=== PATIENT | female | born 1980 | race Caucasian/White ===

== ENCOUNTER 2017-01-22 20:22 | Emergency (ER) | payer MEDICAID ==
--- NOTE | 2017-01-22 20:58 | ER Document Report ---
ED Medical Screen (RME) - General Stated Complaint: RIGHT ANKLE PAIN Notes: 36 yo female c/o pain, swelling and numbness to right lower leg just superior to lateral malleolus. acute onset 1700 today while laying in bed. mild soft tissue swelling noted. no erythema or echymosis. distal SMC intact works as [employer]. no recent travel, trauma, surgery. TRAVEL OUTSIDE OF THE [place] IN LAST 30 DAYS: No - Related Data Allergies/Adverse Reactions: No Known Allergies Allergy (Verified 04/03/16 13:21) Past Medical History Neurological Medical History: Reports: Hx Migraine Renal/ Medical History: Reports: Hx Ectopic - x2 Musculoskeltal Medical History: Reports Hx Arthritis, Reports Hx Musculoskeletal Trauma Skin Medical History: Reports Hx Cellulitis, Reports Hx Psoriasis Psychiatric Medical History: Reports: Hx Obsessive Compulsive Disorder Traumatic Medical History: Reports: Hx Fractures - clavicle Past Surgical History: Reports: Hx Section - x4, Hx Genitourinary Surgery - bladder placenta from bladder, Hx Gynecologic Surgery - ectopic, Hx Hysterectomy - partial, Hx Oral Surgery - Immunizations Immunizations up to date: No Hx Diphtheria, Pertussis, Tetanus Vaccination: No Physical Exam - Vital signs Vitals: Temp Pulse Resp BP Pulse Ox 98.8 F 72 16 127/68 H 99 01/22/17 20:35 01/22/17 20:35 01/22/17 20:35 01/22/17 20:35 01/22/17 20:35 Course - Vital Signs Vital signs: Temp Pulse Resp BP Pulse Ox 98.8 F 72 16 127/68 H 99 01/22/17 20:35 01/22/17 20:35 01/22/17 20:35 01/22/17 20:35 01/22/17 20:35
--- NOTE | 2017-01-23 00:51 | ER Document Report ---
ED Extremity Problem, Lower - General Mode of Arrival: Ambulatory Information source: Patient - HPI Patient complains to provider of: Pain Location: Ankle Associated symptoms: Other - See above <WANG CRUZ - Last Filed: 01/23/17 00:54> - General TRAVEL OUTSIDE OF THE [place] IN LAST 30 DAYS: No <JOHANN WALDRON - Last Filed: 01/23/17 03:13> - General Chief Complaint: Ankle Pain Stated Complaint: RIGHT ANKLE PAIN Notes: Patient is a 36 year old female who presents to the emergency department complaining of pain in her right ankle. Patient states that she was sitting down when all of a sudden she noticed some pain, swelling, and bruising in her right ankle. Patient also complains of numbness and tingling in her lower right extremity. Patient does not recall any trauma to the area and states that the ankle is feeling slightly better now after rubbing it for a while. (WANG CRUZ) - Related Data Allergies/Adverse Reactions: No Known Allergies Allergy (Verified 04/03/16 13:21) Past Medical History - General Information source: Patient - Social History Smoking Status: Unknown if Ever Smoked Family History: Reviewed & Not Pertinent <WANG CRUZ - Last Filed: 01/23/17 00:54> - Social History Smoking Status: Unknown if Ever Smoked Family History: Arthritis, CAD, CVA, Hyperlipidemia, Hypertension. denies: DM, Malignancy, Thyroid Disfunction Patient has suicidal ideation: No Patient has homicidal ideation: No Neurological Medical History: Reports: Hx Migraine Renal/ Medical History: Reports: Hx Ectopic - x2. Denies: Hx Peritoneal Dialysis Musculoskeltal Medical History: Reports Hx Arthritis, Reports Hx Musculoskeletal Trauma Skin Medical History: Reports Hx Cellulitis, Reports Hx Psoriasis Psychiatric Medical History: Reports: Hx Obsessive Compulsive Disorder Traumatic Medical History: Reports: Hx Fractures - clavicle Past Surgical History: Reports: Hx Section - x4, Hx Genitourinary Surgery - bladder placenta from bladder, Hx Gynecologic Surgery - ectopic, Hx Hysterectomy, Hx Oral Surgery - Immunizations Immunizations up to date: No Hx Diphtheria, Pertussis, Tetanus Vaccination: No <JOHANN WALDRON - Last Filed: 01/23/17 03:13> Review of Systems - Review of Systems Constitutional: No symptoms reported EENT: No symptoms reported Cardiovascular: No symptoms reported Respiratory: No symptoms reported Gastrointestinal: No symptoms reported Genitourinary: No symptoms reported Female Genitourinary: No symptoms reported Musculoskeletal: See HPI, Joint pain - right ankle, Ankle swelling Skin: No symptoms reported Hematologic/Lymphatic: No symptoms reported Neurological/Psychological: See HPI, Numbness, Tingling -: Yes All other systems reviewed and negative <WANG CRUZ - Last Filed: 01/23/17 00:54> Physical Exam - Vital signs Interpretation: Normal - General General appearance: Appears well, Alert - HEENT Head: Normocephalic, Atraumatic Eyes: Normal Pupils: PERRL - Respiratory Respiratory status: No respiratory distress Chest status: Nontender Breath sounds: Normal Chest palpation: Normal - Cardiovascular Rhythm: Regular Heart sounds: Normal auscultation Murmur: No - Abdominal Inspection: Normal Distension: No distension Bowel sounds: Normal Tenderness: Nontender Organomegaly: No organomegaly - Back Back: Normal, Nontender - Extremities General upper extremity: Normal inspection, Nontender, Normal color, Normal ROM , Normal temperature General lower extremity: Normal inspection, Tender - Mild TTP R calf, anterior medial R ankle excellent dorsalis pedis/post tibia pulse, Normal color, Normal ROM, Normal temperature, Normal weight bearing - Neurological Neuro grossly intact: Yes Cognition: Normal Orientation: AAOx4 Jonatan Coma Scale Eye Opening: Spontaneous [place] Coma Scale Verbal: Oriented [place] Coma Scale Motor: Obeys Commands [place] Coma Scale Total: 15 Speech: Normal Motor strength normal: LUE, RUE, LLE, RLE Sensory: Normal - Psychological Associated symptoms: Normal affect, Normal mood - Skin Skin Temperature: Warm Skin Moisture: Dry Skin Color: Normal <JOHANN WALDRON - Last Filed: 01/23/17 03:13> - Vital signs Vitals: Temp Pulse Resp BP Pulse Ox 98.8 F 72 16 127/68 H 99 01/22/17 20:35 01/22/17 20:35 01/22/17 20:35 01/22/17 20:35 01/22/17 20:35 Course <WANG CRUZ - Last Filed: 01/23/17 00:54> - Diagnostic Test Radiology reviewed: Reports reviewed <JOHANN WALDRON - Last Filed: 01/23/17 03:13> - Re-evaluation Re-evalutation: 01/23/17 Patient with no acute findings on exam. Excellent blood flow. Patient will be given a prescription for Doppler outpatient. She is able to ambulate. Stable for discharge. (JOHANN WALDRON) - Vital Signs Vital signs: Temp Pulse Resp BP Pulse Ox 97.9 F 60 20 117/70 98 01/23/17 01:00 01/23/17 01:00 01/23/17 01:00 01/23/17 01:00 01/23/17 01:00 Discharge <WANG CRUZ - Last Filed: 01/23/17 00:54> <JOHANN WALDRON - Last Filed: 01/23/17 03:13> - Discharge Clinical Impression: Paresthesias Condition: Stable Disposition: HOME, SELF-CARE Instructions: Numbness or Paresthesia ([facility]), Possible Evolving Leg DVT ([facility]) Additional Instructions: Please follow-up with your PMD this week. Forms: Follow-Up Radiology Testing, Follow-Up Outpatient Testing Scribe Attestation: 01/23/17 03:13 I personally performed the services described in the documentation, reviewed and edited the documentation which was dictated to the scribe in my presence, and it accurately records my words and actions. (JOHANN WALDRON) Scribe Documentation - Scribe Written by Stacie:: stacie Jimenez, 01/23/17, 0058 acting as scribe for :: Nereyda <WANG CRUZ - Last Filed: 01/23/17 00:54>
[2017-01-23 01:01] VITALS: BP 117/70
== END 2017-01-23 01:01 | disposition home or self-care (01) ==
LOC: ER 20:22
DX: R20.2 Paresthesia of skin (principal); R20.0 Anesthesia of skin; M25.571 Pain in right ankle and joints of right foot; M25.471 Effusion, right ankle
CPT/HCPCS: 99283

== ENCOUNTER → 2017-01-23 | Outpatient (CLI) | payer MEDICAID | LOC: SP 13:23 | PROVIDERS: ATTEND Emergency Medicine | DX: M79.604 Pain in right leg (principal); R20.9 Unspecified disturbances of skin sensation | CPT/HCPCS: 93971 ==

== ENCOUNTER 2017-07-16 16:53 | Emergency (ER) | payer MEDICAID ==
--- NOTE | 2017-07-16 17:48 | ER Document Report ---
ED Headache - General Chief Complaint: Headache Stated Complaint: NECK PAIN Time Seen by Provider: 07/16/17 17:40 Notes: 36 yo female c/o DOMINGUEZ x 1 day. pt reports pain started at back of head and base of neck and traveled up top of head. pain comes in "bursts". + hx/o migraines , "but this is worse". vomited x 1, no fever, no neck stiffness. TRAVEL OUTSIDE OF THE [place] IN LAST 30 DAYS: No - HPI Patient complains to provider of: Headache Patient reports: Frequent migraines Onset was: Gradual Timing: Still present Quality of pain: Sharp, Stabbing, Throbbing Pain Level: 5 Preceding symptoms: denies: Typical of prior aura(s) - worse than usual headache , Visual disturbance - Related Data Allergies/Adverse Reactions: No Known Allergies Allergy (Verified 07/16/17 16:59) Past Medical History - General Information source: Patient - Social History Smoking Status: Current Every Day Smoker Frequency of alcohol use: None Drug Abuse: None Family History: Arthritis, CAD, CVA, Hyperlipidemia, Hypertension. denies: DM, Malignancy, Thyroid Disfunction Neurological Medical History: Reports: Hx Migraine Renal/ Medical History: Reports: Hx Ectopic - x2. Denies: Hx Peritoneal Dialysis Musculoskeltal Medical History: Reports Hx Arthritis, Reports Hx Musculoskeletal Trauma Skin Medical History: Reports Hx Cellulitis, Reports Hx Psoriasis Psychiatric Medical History: Reports: Hx Obsessive Compulsive Disorder Traumatic Medical History: Reports: Hx Fractures - clavicle Past Surgical History: Reports: Hx Section - x4, Hx Genitourinary Surgery - bladder placenta from bladder, Hx Gynecologic Surgery - ectopic, Hx Hysterectomy, Hx Oral Surgery - Immunizations Immunizations up to date: No Hx Diphtheria, Pertussis, Tetanus Vaccination: No Review of Systems - Review of Systems Constitutional: No symptoms reported EENT: No symptoms reported Cardiovascular: No symptoms reported Respiratory: No symptoms reported Gastrointestinal: No symptoms reported Genitourinary: No symptoms reported Female Genitourinary: No symptoms reported Musculoskeletal: No symptoms reported Skin: No symptoms reported Hematologic/Lymphatic: No symptoms reported Neurological/Psychological: See HPI Physical Exam - Vital signs Vitals: Temp Pulse Resp BP Pulse Ox 97.8 F 68 20 141/89 H 99 07/16/17 16:58 07/16/17 16:58 07/16/17 16:58 07/16/17 16:58 07/16/17 16:58 Interpretation: Normal - General General appearance: Alert, Anxious - uncomfortable, in position on bed In distress: Mild - HEENT Head: Normocephalic, Atraumatic Eyes: Normal Conjunctiva: Normal Cornea: Normal Extraocular movements intact: Yes Pupils: PERRL Tympanic membrane: Normal Mucous membranes: Normal, Moist Neck: Normal, Supple. No: Lymphadenopathy - Respiratory Respiratory status: No respiratory distress Chest status: Nontender Breath sounds: Normal Chest palpation: Normal - Cardiovascular Rhythm: Regular Heart sounds: Normal auscultation Murmur: No - Abdominal Inspection: Normal Distension: No distension Bowel sounds: Normal Tenderness: Nontender Organomegaly: No organomegaly - Back Back: Normal, Nontender - Extremities General upper extremity: Normal inspection, Nontender, Normal color, Normal ROM , Normal temperature General lower extremity: Normal inspection, Nontender, Normal color, Normal ROM , Normal temperature, Normal weight bearing. No: Cholo's sign - Neurological Neuro grossly intact: Yes Cognition: Normal Orientation: AAOx4 Jonatan Coma Scale Eye Opening: Spontaneous [place] Coma Scale Verbal: Oriented [place] Coma Scale Motor: Obeys Commands [place] Coma Scale Total: 15 Speech: Normal Motor strength normal: LUE, RUE, LLE, RLE Sensory: Normal - Psychological Associated symptoms: Normal affect, Normal mood - Skin Skin Temperature: Warm Skin Moisture: Dry Skin Color: Normal Course - Re-evaluation Re-evalutation: 07/16/17 17:55 pt uncomfortable but neurologically intact. no meningeal s/s. will CT head since pt admitted this is worse headache ever and not typical for her. medicated for pain 07/16/17 19:[address] normal. results reviewed with patient. pt improved after meds. neurologically intact. stable for discharge and follow up with primary care. - Vital Signs Vital signs: Temp Pulse Resp BP Pulse Ox 97.8 F 68 20 141/89 H 99 07/16/17 16:58 07/16/17 16:58 07/16/17 16:58 07/16/17 16:58 07/16/17 16:58 Discharge - Discharge Clinical Impression: Headache Qualifiers: Headache type: unspecified Headache chronicity pattern: acute headache Intractability: not intractable Qualified Code(s): R51 - Headache Condition: Stable Disposition: HOME, SELF-CARE Instructions: Antinausea Medication ([facility]), Use of Diphenhydramine, Headache ( [facility]), Toradol Injection ([facility]), Reglan ([facility]) Additional Instructions: Your head CT is negative today if your headache returns, take 2 Benadryl + 1 Phenergan and lay down in cool, dark room to rest follow up with your primary care if headaches persist Prescriptions: Promethazine HCl [Phenergan 25 mg Tablet] 25 mg PO Q6H PRN #15 tablet PRN Reason: Forms: Return to Work
[2017-07-16] MEDS ORDERED: DIPHENHYDRAMINE HCL 50 MG/ML VIAL IV ONE (17:49)
[2017-07-16] MEDS ORDERED: KETOROLAC TROMETHAMINE INJ/PF 30 MG/1 ML SDV IV ONE (17:49)
[2017-07-16] MEDS ORDERED: METOCLOPRAMIDE HCL INJ/PF 10 MG/2 ML SDV IV ONE (17:49)
--- NOTE | 2017-07-16 18:38 | RADIOLOGY REPORT (SQ) ---
EXAM DESCRIPTION: CT HEAD WITHOUT COMPLETED DATE/TIME: 07/16/2017 6:30 pm REASON FOR STUDY: worst DOMINGUEZ ever COMPARISON: None. TECHNIQUE: Axial images acquired through the brain without intravenous contrast. Images reviewed wi th bone, brain and subdural windows. Images stored on PACS. All CT scanners at this facility use dose modulation, iterative reconstruction, and/or weight based d osing when appropriate to reduce radiation dose to as low as reasonably achievable (ALARA). [facility]: Dose Right [facility]: CareDose [facility]: Dose Right [facility]: Teradose 4D [facility]: Estrada Beisbol RADIATION DOSE: mGy. LIMITATIONS: None. FINDINGS: VENTRICLES: Normal size and contour. CEREBRUM: No masses. No hemorrhage. No midline shift. No evidence for acute infarction. Normal gra y/white matter differentiation. No areas of low density in the white matter. CEREBELLUM: No masses. No hemorrhage. No alteration of density. No evidence for acute infarction. EXTRAAXIAL SPACES: No fluid collections. No masses. ORBITS AND GLOBE: No intra- or extraconal masses. Normal contour of globe without masses. CALVARIUM: No fracture. PARANASAL SINUSES: No fluid or mucosal thickening. SOFT TISSUES: No mass or hematoma. OTHER: No other significant finding. IMPRESSION: NORMAL BRAIN CT WITHOUT CONTRAST. COMMENT: Quality ID # [id number]: Final reports with documentation of one or more dose reduction techniques (e.g., Automated exposure control, adjustment of the mA and/or kV according to patient size, use of iterative reconstruction technique) TECHNICAL DOCUMENTATION: JOB ID: [id number] [employer]- All Rights Reserved
[2017-07-16 19:49] VITALS: BP 117/62
== END 2017-07-16 19:49 | disposition home or self-care (01) ==
LOC: ER 16:53
DX: R51 Headache (principal); M54.2 Cervicalgia; R11.10 Vomiting, unspecified; F17.200 Nicotine dependence, unspecified, uncomplicated
CPT/HCPCS: 99284; 96374; 96375; 70450; J1200; J1885; J2765

== ENCOUNTER 2018-01-01 10:50 | Emergency (ER) | payer MEDICAID ==
--- NOTE | 2018-01-01 11:28 | ER Document Report ---
ED General - General Chief Complaint: Flu Symptoms Stated Complaint: FLU SYMPTOMS Time Seen by Provider: 01/01/18 11:25 Mode of Arrival: Ambulatory Information source: Patient Notes: 37-year-old female presents with a multitude of complaints, patient notes initially she started having a cough congestion light green sputum, patient notes she has fevers, patient notes from all her coughing she is now having upper abdominal pain and neck pain and hurts on palpation. Patient admits to mild headache. Patient also notes today she was having dark and foul-smelling urine as well as ear pain TRAVEL OUTSIDE OF THE [place] IN LAST 30 DAYS: No - HPI Onset: Last week Onset/Duration: Persistent Quality of pain: Achy Severity: Mild Pain Level: 1 Associated symptoms: Body/muscle aches, Earache, Fever, Shortness of breath, Other Exacerbated by: Movement Relieved by: Denies Similar symptoms previously: No Recently seen / treated by doctor: No - Related Data Allergies/Adverse Reactions: No Known Allergies Allergy (Verified 01/01/18 10:53) Past Medical History - Social History Smoking Status: Current Every Day Smoker Cigarette use (# per day): Yes Chew tobacco use (# tins/day): No Smoking Education Provided: Yes - Patient counselled regarding cessation for 4 minutes Frequency of alcohol use: Rare Drug Abuse: None Family History: Arthritis, CAD, CVA, Hyperlipidemia, Hypertension. denies: DM, Malignancy, Thyroid Disfunction Patient has suicidal ideation: No Patient has homicidal ideation: No Neurological Medical History: Reports: Hx Migraine Renal/ Medical History: Reports: Hx Ectopic - x2. Denies: Hx Peritoneal Dialysis Musculoskeltal Medical History: Reports Hx Arthritis, Reports Hx Musculoskeletal Trauma Skin Medical History: Reports Hx Cellulitis, Reports Hx Psoriasis Psychiatric Medical History: Reports: Hx Obsessive Compulsive Disorder Traumatic Medical History: Reports: Hx Fractures - clavicle Past Surgical History: Reports: Hx Section - x4, Hx Genitourinary Surgery - bladder placenta from bladder, Hx Gynecologic Surgery - ectopic, Hx Hysterectomy, Hx Oral Surgery - Immunizations Immunizations up to date: No Hx Diphtheria, Pertussis, Tetanus Vaccination: No Review of Systems - Review of Systems Notes: REVIEW OF SYSTEMS: CONSTITUTIONAL : Fevers chills EENT: Neck pain, ear ache CARDIOVASCULAR: Denies chest pain. Denies palpitations or racing or irregular heart beat. Denies ankle edema. RESPIRATORY: admits to ocugh GASTROINTESTINAL: Denies abdominal pain or distention. Denies nausea, vomiting , or diarrhea. Denies blood in vomitus, stools, or per rectum. Denies black, tarry stools. Denies constipation. GENITOURINARY: Denies difficulty urinating, painful urination, burning, frequency, blood in urine, or discharge. FEMALE GENITOURINARY: Denies vaginal bleeding, heavy or abnormal periods, irregular periods. Denies vaginal discharge or odor. MUSCULOSKELETAL: neck pain SKIN: Denies rash, lesions or sores. HEMATOLOGIC : Denies easy bruising or bleeding. LYMPHATIC: Denies swollen, enlarged glands. NEUROLOGICAL: Denies confusion or altered mental status. Denies passing out or loss of consciousness. Denies dizziness or lightheadedness. Denies headache. Denies weakness or paralysis or loss of use of either side. Denies problems with gait or speech. Denies sensory loss, numbness, or tingling. Denies seizures. PSYCHIATRIC: Denies anxiety or stress. Denies depression, suicidal ideation, or homicidal ideation. ALL OTHER SYSTEMS REVIEWED AND NEGATIVE. PHYSICAL EXAMINATION: GENERAL: Well-appearing, well-nourished and in no acute distress. HEAD: Atraumatic, normocephalic. EYES: Pupils equal round and reactive to light, extraocular movements intact, conjunctiva are normal. ENT: Nares patent, oropharynx clear without exudates. Moist mucous membranes. NECK: Normal range of motion, supple without lymphadenopathy, no meningeal sign LUNGS: Breath sounds clear to auscultation bilaterally and equal. No wheezes rales or rhonchi. ACough noted HEART: Regular rate and rhythm without murmurs ABDOMEN: Soft, nontender, nondistended abdomen. No guarding, no rebound. No masses appreciated. Female : deferred Musculoskeletal: Normal range of motion, no pitting or edema. No cyanosis. NEUROLOGICAL: Cranial nerves grossly intact. Normal speech, normal gait. Normal sensory, motor exams PSYCH: Normal mood, normal affect. SKIN: Warm, Dry, normal turgor, no rashes or lesions noted. Dictation was performed using [employer] voice recognition software Physical Exam - Vital signs Vitals: Temp Pulse Resp BP Pulse Ox 98.0 F 50 L 18 136/75 H 98 01/01/18 10:56 01/01/18 10:56 01/01/18 10:56 01/01/18 10:56 01/01/18 10:56 Course - Re-evaluation Re-evalutation: 01/01/18 11:28 Patient has probable bowel syndrome, given history of smoking x-ray has been ordered, influenza pending, urinalysis pending for UTI 01/01/18 13:05 UTI does note 3+ bacteria, chest x-ray noted no acute abnormality I will start the patient doxycycline given that she is a smoker with productive cough, smoking cessation instructions have been provided, she has no signs of meningitis, After performing a Medical Screening Examination, I estimate there is LOW risk for ACUTE CORONARY SYNDROME, PULMONARY EMBOLI, RESPIRATORY FAILURE, SEPSIS OR MENINGITIS, thus I consider the discharge disposition reasonable. I have reevaluated this patient multiple times and no significant life threatening changes are noted. The patient and I have discussed the diagnosis and risks, and we agree with discharging home with close follow-up. We also discussed returning to the Emergency Department immediately if new or worsening symptoms occur. We have discussed the symptoms which are most concerning (e.g., changing or worsening pain, trouble swallowing or breathing, neck stiffness, fever) that necessitate immediate return. - Vital Signs Vital signs: Temp Pulse Resp BP Pulse Ox 97.9 F 62 16 123/82 99 01/01/18 13:02 01/01/18 13:02 01/01/18 13:02 01/01/18 13:02 01/01/18 13:02 - Laboratory Laboratory results interpreted by me: 01/01/18 11:50 Urine Ascorbic Acid 40 H - Diagnostic Test Radiology reviewed: Image reviewed, Reports reviewed Discharge - Discharge Clinical Impression: Productive cough, Body aches UTI (urinary tract infection) Qualifiers: Urinary tract infection type: acute cystitis Hematuria presence: without hematuria Qualified Code(s): N30.00 - Acute cystitis without hematuria Condition: Stable Disposition: HOME, SELF-CARE Instructions: Urinary Tract Infection ([facility]) Additional Instructions: Follow up with your physician tomorrow for further care or return to the ED IMMEDIATELY if symptoms worsen or new concerns occur. If you cannot afford to follow up with your primary care physician a list of low cost clinics have been provided at the end of your discharge papers as well. Prescriptions: Doxycycline Hyclate 100 mg PO BID #14 capsule
[2018-01-01 12:24] LABS: APPEARANCE,URINE CLEAR; BILIRUBIN,URINE NEGATIVE (NEGATIVE); COLOR,URINE YELLOW; GLUCOSE, URINE NEGATIVE (NEGATIVE); KETONES,URINE NEGATIVE (NEGATIVE); LEUKOCYTE ESTERASE,URINE NEGATIVE (NEGATIVE); NITRITE,URINE NEGATIVE (NEGATIVE); PROTEIN,URINE NEGATIVE (NEGATIVE); URINE SPECIFIC GRAVITY 1.008; UROBILINOGEN,URINE NEGATIVE mg/dL (<2.0)
[2018-01-01 12:26] LABS: A TYPE INFLUENZA AG NEGATIVE (NEGATIVE); B INFLUENZA AG NEGATIVE (NEGATIVE)
--- NOTE | 2018-01-01 12:37 | RADIOLOGY REPORT (SQ) ---
EXAM DESCRIPTION: CHEST PA/LAT COMPLETED DATE/TIME: 01/01/2018 12:09 pm REASON FOR STUDY: productive cough COMPARISON: None. EXAM PARAMETERS: NUMBER OF VIEWS: two views TECHNIQUE: Digital Frontal and Lateral radiographic views of the chest acquired. RADIATION DOSE: NA LIMITATIONS: none FINDINGS: LUNGS AND PLEURA: No opacities, masses or pneumothorax. No pleural effusion. MEDIASTINUM AND HILAR STRUCTURES: No masses or contour abnormalities. HEART AND VASCULAR STRUCTURES: Heart normal size. No evidence for failure. BONES: Old fracture deformity right clavicle. HARDWARE: None in the chest. OTHER: No other significant finding. IMPRESSION: NO SIGNIFICANT RADIOGRAPHIC FINDING IN THE CHEST. TECHNICAL DOCUMENTATION: JOB ID: [id number] [employer]- All Rights Reserved Reading location - IP/workstation name: [email or web address]
[2018-01-01 13:03] VITALS: BP 123/82
[2018-01-01] MEDS ORDERED: KETOROLAC TROMETHAMINE 60 MG/2 ML SDV IM ONE (13:03)
== END 2018-01-01 13:03 | disposition home or self-care (01) ==
LOC: ER 10:50
DX: R05 Cough (principal); N30.00 Acute cystitis without hematuria; R50.9 Fever, unspecified; R10.10 Upper abdominal pain, unspecified; M54.2 Cervicalgia; R51 Headache; H92.09 Otalgia, unspecified ear; R06.02 Shortness of breath; F17.210 Nicotine dependence, cigarettes, uncomplicated; Z71.6 Tobacco abuse counseling
CPT/HCPCS: 99406; 99283; 96372; 81025; 81001; 87804; 71046; J1885

== ENCOUNTER 2018-06-16 01:32 | Emergency (ER) | payer MEDICAID ==
[2018-06-16 01:39] VITALS: BP 115/67
[2018-06-16] MEDS ORDERED: PROMETHAZINE HCL 25 MG TABLET PO ONE (02:58)
[2018-06-16] MEDS ORDERED: OXYCODONE-ACETAMINOPHEN 5-325 MG TABLET PO ONE (02:58)
--- NOTE | 2018-06-16 03:00 | ER Document Report ---
ED GI/ - General TRAVEL OUTSIDE OF THE [place] IN LAST 30 DAYS: No <EARLINE REYNOLDS - Last Filed: 06/16/18 07:08> - General Mode of Arrival: Ambulatory Information source: Patient <EDUIN GARCIA - Last Filed: 06/16/18 12:48> - General Chief Complaint: Lower Abdominal Pain Stated Complaint: LOWER ABDOMINAL PAIN Time Seen by Provider: 06/16/18 02:45 Notes: Patient is a 37-year-old female who comes emergency department for chief complaint of sudden onset right pelvic pain with nausea, symptoms started about 30 minutes prior to arrival. She denies vaginal bleeding or discharge, dysuria , fever chills, injury, flank pain. She has had a partial hysterectomy, bladder surgery, and she does have a history of ovarian cysts. (EARLINE REYNOLDS) - Related Data Allergies/Adverse Reactions: No Known Allergies Allergy (Verified 01/01/18 10:53) Past Medical History - General Information source: Patient - Social History Smoking Status: Current Every Day Smoker Frequency of alcohol use: None Drug Abuse: None Lives with: Family Family History: Arthritis, CAD, CVA, Hyperlipidemia, Hypertension. denies: DM, Malignancy, Thyroid Disfunction Patient has suicidal ideation: No Patient has homicidal ideation: No Neurological Medical History: Reports: Hx Migraine Renal/ Medical History: Reports: Hx Ectopic - x2. Denies: Hx Peritoneal Dialysis Musculoskeletal Medical History: Reports Hx Arthritis, Reports Hx Musculoskeletal Trauma Skin Medical History: Reports Hx Cellulitis, Reports Hx Psoriasis Psychiatric Medical History: Reports: Hx Obsessive Compulsive Disorder Traumatic Medical History: Reports: Hx Fractures - clavicle Past Surgical History: Reports: Hx Section - x4, Hx Genitourinary Surgery - bladder placenta from bladder, Hx Gynecologic Surgery - ectopic, Hx Hysterectomy, Hx Oral Surgery - Immunizations Immunizations up to date: No Hx Diphtheria, Pertussis, Tetanus Vaccination: No <EARLINE REYNOLDS - Last Filed: 06/16/18 07:08> Review of Systems - Review of Systems Constitutional: No symptoms reported EENT: No symptoms reported Cardiovascular: No symptoms reported Respiratory: No symptoms reported Gastrointestinal: See HPI Genitourinary: See HPI Female Genitourinary: See HPI Musculoskeletal: No symptoms reported Skin: No symptoms reported Hematologic/Lymphatic: No symptoms reported Neurological/Psychological: No symptoms reported <EARLINE REYNOLDS - Last Filed: 06/16/18 07:08> Physical Exam <EARLINE REYNOLDS - Last Filed: 06/16/18 07:08> <EDUIN GARCIA - Last Filed: 06/16/18 12:48> - Vital signs Vitals: Temp Pulse Resp BP Pulse Ox 98.0 F 82 16 115/67 97 06/16/18 01:37 06/16/18 01:37 06/16/18 01:37 06/16/18 01:37 06/16/18 01:37 - Notes Notes: GENERAL: Alert, interacts well. Patient appears mildly uncomfortable. HEAD: Normocephalic, atraumatic. EYES: Pupils equal, round, and reactive to light. Extraocular movements intact. ENT: Oral mucosa moist, tongue midline. [Nares patent, no nasal septal hematoma , TM's intact.] NECK: Full range of motion. Supple. Trachea midline. LUNGS: Clear to auscultation bilaterally, no wheezes, rales, or rhonchi. No respiratory distress. HEART: Regular rate and rhythm. No murmur ABDOMEN: Tenderness in the right pelvic area with wincing. No overt McBurney's point tenderness. No distention. Remaining abdomen is soft and benign. EXTREMITIES: Moves all 4 extremities spontaneously. No edema, normal radial and dorsalis pedis pulses bilaterally. No cyanosis. BACK: no cervical, thoracic, lumbar midline tenderness. No saddle anesthesia, normal distal neurovascular exam. NEUROLOGICAL: Alert and oriented x3. Normal speech. [cranial nerves II through XII grossly intact]. PSYCH: Normal affect, normal mood. SKIN: Warm, dry, normal turgor. No rashes or lesions noted. (EARLINE REYNOLDS) Course - Laboratory Result Diagrams: 06/16/18 03:05 06/16/18 03:05 <EARLINE REYNOLDS - Last Filed: 06/16/18 07:08> - Laboratory Result Diagrams: 06/16/18 03:05 06/16/18 03:05 <EDUIN GARCIA - Last Filed: 06/16/18 12:48> - Re-evaluation Re-evalutation: Patient does have right sided pelvic tenderness, not overtly over McBurney's point, remaining abdomen is completely benign. She appears mildly uncomfortable. After medications patient's symptoms significantly improved, she states she is much more comfortable. Vital signs unremarkable. No fever. Presentation of sudden onset pain with nausea and right pelvic tenderness are most suggestive of right ovarian torsion. CBC, chemistry unremarkable. Urinalysis unremarkable. Ultrasound showing very superficial possible ovary with blood flow in the right pelvic area, recommended CAT scan to further evaluate and differentiate. I discussed this with patient, she is very agreeable with this plan, she denies additional medication at this point. 06/16/18 07:08 Patient introduced to Eduin BORDEN at bedside. Patient drinking contrast, no current complaints, pending CAT scan. (EARLINE REYNOLDS) Disposition given to AMBER Broussard at bedside 0715. Patient sleeping, vitals stable and in no distress. Awaiting results of CT scan. 06/16/18 10:27 06/16/18 12:43 CT of abdomen pelvis with IV contrast does not show any abscess or hematoma. CT abdomen pelvis is able to visualize appendix which looks normal. Pelvis has no significant masses, normal bladder, no free fluid. No obstruction, no masses seen in bowel or peritoneal cavity, no free fluid no inflammation or thickening of bowel wall. No retroperitoneal adenopathy hemorrhage or masses. No renal stones, no hydronephrosis, no dissection or aneurysm renal arteries are without stenosis. Vaginal culture showed the patient does have bacterial vaginosis will treat appropriately. Consulted with Dr. Bertha Nascimento, [employer] on -call at 1230 regarding pertinent laboratory diagnostic and clinical findings. She states that patient is okay to go home and follow-up with medical doctor as well as her in the next 3 days. 06/16/18 12:48 (EDUIN GARCIA) - Vital Signs Vital signs: Temp Pulse Resp BP Pulse Ox 98.0 F 82 16 115/67 97 06/16/18 01:37 06/16/18 01:37 06/16/18 01:37 06/16/18 01:37 06/16/18 01:37 - Laboratory Laboratory results interpreted by me: 06/16/18 06/16/18 02:32 03:05 Chloride 110 H AST 12 L Urine Ketones TRACE H Urine Urobilinogen 2.0 H Discharge <EARLINE REYNOLDS - Last Filed: 06/16/18 07:08> <EDUIN GARCIA - Last Filed: 06/16/18 12:48> - Discharge Clinical Impression: Bacterial vaginosis, right pelvic pain Condition: Stable Disposition: HOME, SELF-CARE Instructions: Vaginosis, Bacterial ([facility]), Pelvic Pain ([facility]), Abdominal Pain ( [facility]) Additional Instructions: Work was normal. CT abdomen pelvis with IV contrast was normal. Liver not having any ovarian torsion, there is no cyst seen on the right ovary. 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 If you experience any worsening pain, fever, nausea vomiting, diarrhea, vaginal bleeding, etc. return to the ED immediately. Return immediately for any new or worsening symptoms. Follow up with primary care provider, call tomorrow to make followup appointment. Prescriptions: Metronidazole 500 mg PO BID #14 tablet Forms: Return to Work Referrals: BERTHA NASCIMENTO MD [ACTIVE STAFF] - Follow up in 3-5 days ROLA SOTOMAYOR DO [Primary Care Provider] - Follow up in 3-5 days
[2018-06-16 03:38] LABS: ABSOLUTE BASOPHILS # (AUTO) 0.1 10^3/uL (0.0-0.2); ABSOLUTE EOSINOPHILS # (AUTO) 0.1 10^3/uL (0.0-0.6); ABSOLUTE LYMPHOCYTES (AUTO) 2.6 10^3/uL (0.5-4.7); ABSOLUTE MONOCYTES (AUTO) 0.7 10^3/uL (0.1-1.4); ABSOLUTE NEUT (AUTO) 5.7 10^3/uL (1.7-8.2); BASOPHILS % (AUTO) 0.7 % (0-2); EOSINOPHILS % (AUTO) 0.6 % (0-6); HEMATOCRIT 40.4 % (36.0-47.0); HEMOGLOBIN 13.9 g/dL (12.0-15.5); LYMPHOCYTES % (AUTO) 28.3 % (13-45); MEAN CORPUSCULAR HEMOGLOBIN 30.3 pg (27.0-33.4); MEAN CORPUSCULAR HGB CONC 34.5 g/dL (32.0-36.0); MEAN CORPUSCULAR VOLUME 88 fl (80-97); MONOCYTES % (AUTO) 7.8 % (3-13); PLATELET COUNT 191 10^3/uL (150-450); RED CELL DISTRIBUTION WIDTH 13.7 % (11.5-14.0); SEGMENTED NEUTROPHILS % (AUTO) 62.6 % (42-78); TOTAL CELLS COUNTED % (AUTO) 100 %; WHITE BLOOD COUNT 9.1 10^3/uL (4.0-10.5)
[2018-06-16 03:55] LABS: ALANINE AMINOTRANSFERASE 19 U/L (9-52); ALKALINE PHOSPHATASE 54 U/L (38-126); ANION GAP 12 (5-19); ASPARTATE AMINO TRANSFERASE 12 U/L (14-36); BILIRUBIN,DIRECT 0.2 mg/dL (0.0-0.4); BILIRUBIN,TOTAL 0.2 mg/dL (0.2-1.3); BLOOD UREA NITROGEN 11 mg/dL (7-20); CALCIUM 9.6 mg/dL (8.4-10.2); CARBON DIOXIDE 23 mmol/L (22-30); CHLORIDE 110 mmol/L (98-107); GLUCOSE 103 mg/dL (75-110); POTASSIUM 3.8 mmol/L (3.6-5.0); SODIUM 144.6 mmol/L (137-145); TOTAL PROTEIN 6.5 g/dL (6.3-8.2)
[2018-06-16 03:55] LABS: APPEARANCE,URINE CLEAR; BILIRUBIN,URINE NEGATIVE (NEGATIVE); COLOR,URINE YELLOW; GLUCOSE, URINE NEGATIVE (NEGATIVE); KETONES,URINE TRACE mg/dL (NEGATIVE); LEUKOCYTE ESTERASE,URINE NEGATIVE (NEGATIVE); NITRITE,URINE NEGATIVE (NEGATIVE); PROTEIN,URINE NEGATIVE (NEGATIVE); URINE SPECIFIC GRAVITY 1.016
--- NOTE | 2018-06-16 04:50 | RADIOLOGY REPORT (SQ) ---
Ultrasound pelvis on 06/16/2018 at 3:47 AM Clinical indications: Acute onset right lower quadrant pain COMPARISON: None FINDINGS: Multiple sonographic images are obtained throughout the pelvis by transabdominal and transvaginal approach, both transverse and sagittal images are obtained. The patient is status post hysterectomy. No free fluid is noted in the pelvis. Left ovary is not visualized. There is hypoechoic area in the right lower quadrant. This has increased through transmission with internal echoes. There is flow extending through this area. This may represent the right ovary. Cannot exclude abscess or hematoma. Follow-up CT of the abdomen and pelvis with contrast would be useful to better evaluate the right pelvis in this patient. There is no enlarged ovary to suggest definite ovarian torsion. IMPRESSION: Very superficial hypoechoic abnormality in the right lower quadrant. This is not definitively the patient's ovary although this may represent the ovary. Cannot exclude abscess or hematoma. Would recommend follow-up CT of the abdomen and pelvis with contrast to better evaluate the right lower quadrant.
--- NOTE | 2018-06-16 08:24 | RADIOLOGY REPORT (SQ) ---
EXAM DESCRIPTION: CT ABD/PELVIS WITH IV ORAL COMPLETED DATE/TIME: 06/16/2018 7:59 am REASON FOR STUDY: RLQ pain COMPARISON: None. TECHNIQUE: CT scan of the abdomen and pelvis performed with intravenous and oral contrast using leelee gerald scanning technique with dynamic intravenous contrast injection. Images reviewed with lung, soft t issue, and bone windows. Reconstructed coronal and sagittal MPR images reviewed. Delayed images for e valuation of the urinary system also acquired. All images stored on PACS. All CT scanners at this facility use dose modulation, iterative reconstruction, and/or weight based d osing when appropriate to reduce radiation dose to as low as reasonably achievable (ALARA). [facility]: Dose Right [facility]: CareDose [facility]: Dose Right [facility]: Teradose 4D [facility]: GB Environmental CONTRAST TYPE AND DOSE: contrast/concentration: Isovue 350.00 mg/ml; Total Contrast Delivered: 58.0 ml; Total Saline Delivered: 65.0 ml RENAL FUNCTION: GFR > 60. RADIATION DOSE: CT Rad equipment meets quality standard of care and radiation dose reduction techniq ues were employed. CTDIvol: 4.8 - 5.0 mGy. DLP: 527 mGy-cm.. LIMITATIONS: None. FINDINGS: LOWER CHEST: No significant findings. No nodules or infiltrates. LIVER: Normal size. No masses. No dilated ducts. SPLEEN: Normal size. No focal lesions. PANCREAS: No masses. No significant calcifications. No adjacent inflammation or peripancreatic fluid collections. Pancreatic duct not dilated. GALLBLADDER: No identified stones by CT criteria. No inflammatory changes to suggest cholecystitis. ADRENAL GLANDS: No significant masses or asymmetry. RIGHT KIDNEY AND URETER: No solid masses. No significant calcification. No hydronephrosis or hydroure ter. LEFT KIDNEY AND URETER: No solid masses. No significant calcification. No hydronephrosis or hydrouret er. AORTA AND VESSELS: No aneurysm. No dissection. Renal arteries, SMA, celiac without stenosis. RETROPERITONEUM: No retroperitoneal adenopathy, hemorrhage or masses. BOWEL AND PERITONEAL CAVITY: No obstruction. No visualized masses. No free fluid. No inflammatory ch anges or thickening of bowel wall. APPENDIX: Normal. PELVIS: No significant masses. Normal bladder. No free fluid. ABDOMINAL WALL: No masses. No hernias. BONES: No significant or acute findings. OTHER: No other significant finding. IMPRESSION: NO SIGNIFICANT OR ACUTE FINDINGS IN THE ABDOMEN OR PELVIS. TECHNICAL DOCUMENTATION: JOB ID: [id number] Quality ID # [id number]: Final reports with documentation of one or more dose reduction techniques (e.g., Au tomated exposure control, adjustment of the mA and/or kV according to patient size, use of iterative reconstruction technique) 2010 [employer]- All Rights Reserved Reading location - IP/workstation name: [email or web address] [id number]
[2018-06-16 11:45] LABS: T.VAGINALIS (WET MOUNT) NO TRICHOMONAS SEEN; YEAST (WET MOUNT) NO YEAST SEEN
[2018-06-16 11:46] LABS: BACTERIA (WET MOUNT) 3+ BACTERIA SEEN; EPITHELIALS (WET MOUNT) 4+ EPITHELIALS SEEN; WBCS (WET MOUNT) RARE WBCS SEEN
[2018-06-16 13:34] LABS: CHLAM PCR NOT DETECTED (NOT DETECT); GON PCR NOT DETECTED (NOT DETECT)
== END 2018-06-16 13:13 | disposition home or self-care (01) ==
LOC: ER 01:32
DX: N76.0 Acute vaginitis (principal); B96.89 Other specified bacterial agents as the cause of diseases classified elsewhere; R10.2 Pelvic and perineal pain; R11.0 Nausea; F17.200 Nicotine dependence, unspecified, uncomplicated; Z90.711 Acquired absence of uterus with remaining cervical stump; Z87.42 Personal history of other diseases of the female genital tract; Z87.59 Personal history of other complications of pregnancy, childbirth and the puerperium
CPT/HCPCS: 99284; 36415; 87210; 84703; 85025; 80053; 81001; 87491; 87591; 76830; 93976; 74177; J3490

== ENCOUNTER 2018-11-22 18:49 | Emergency (ER) | payer MEDICAID ==
[2018-11-22] MEDS ORDERED: HYDROCODONE/ACETAMINOPHEN 5-325 MG TABLET PO ONE (19:13)
--- NOTE | 2018-11-22 19:13 | ER Document Report ---
ED Medical Screen (RME) - General Chief Complaint: Abdominal Pain Stated Complaint: ABDOMINAL PAIN, BACK PAIN Time Seen by Provider: 11/22/18 19:11 Mode of Arrival: Ambulatory Information source: Patient TRAVEL OUTSIDE OF THE [place] IN LAST 30 DAYS: No - HPI Patient complains to provider of: R flank pain Onset: Yesterday - pt with onset of R flank and LBP starting yesterday with radiation to R groin area today - Related Data Allergies/Adverse Reactions: No Known Allergies Allergy (Verified 01/01/18 10:53) Past Medical History Neurological Medical History: Reports: Hx Migraine Renal/ Medical History: Reports: Hx Ectopic - x2. Denies: Hx Peritoneal Dialysis Musculoskeltal Medical History: Reports Hx Arthritis, Reports Hx Musculoskeletal Trauma Skin Medical History: Reports Hx Cellulitis, Reports Hx Psoriasis Psychiatric Medical History: Reports: Hx Obsessive Compulsive Disorder Traumatic Medical History: Reports: Hx Fractures - clavicle Past Surgical History: Reports: Hx Section - x4, Hx Genitourinary Surgery - bladder placenta from bladder, Hx Gynecologic Surgery - ectopic, Hx Hysterectomy, Hx Oral Surgery - Immunizations Immunizations up to date: No Hx Diphtheria, Pertussis, Tetanus Vaccination: No Doctor's Discharge - Discharge Referrals: ROLA SOTOMAYOR DO [Primary Care Provider] - Follow up as needed
[2018-11-22 19:37] LABS: ABSOLUTE BASOPHILS # (AUTO) 0.1 10^3/uL (0.0-0.2); ABSOLUTE EOSINOPHILS # (AUTO) 0.1 10^3/uL (0.0-0.6); ABSOLUTE LYMPHOCYTES (AUTO) 2.1 10^3/uL (0.5-4.7); ABSOLUTE MONOCYTES (AUTO) 0.6 10^3/uL (0.1-1.4); ABSOLUTE NEUT (AUTO) 5.3 10^3/uL (1.7-8.2); BASOPHILS % (AUTO) 0.7 % (0-2); EOSINOPHILS % (AUTO) 0.9 % (0-6); HEMATOCRIT 41.4 % (36.0-47.0); LYMPHOCYTES % (AUTO) 25.2 % (13-45); MEAN CORPUSCULAR HEMOGLOBIN 29.8 pg (27.0-33.4); MEAN CORPUSCULAR HGB CONC 33.8 g/dL (32.0-36.0); MEAN CORPUSCULAR VOLUME 88 fl (80-97); MONOCYTES % (AUTO) 7.9 % (3-13); PLATELET COUNT 208 10^3/uL (150-450); RED BLOOD COUNT 4.68 10^6/uL (3.72-5.28); RED CELL DISTRIBUTION WIDTH 13.8 % (11.5-14.0); SEGMENTED NEUTROPHILS % (AUTO) 65.3 % (42-78); TOTAL CELLS COUNTED % (AUTO) 100 %; WHITE BLOOD COUNT 8.2 10^3/uL (4.0-10.5)
[2018-11-22 19:41] LABS: AMORPHOUS SEDIMENT,URINE TRACE /HPF; APPEARANCE,URINE CLOUDY; BILIRUBIN,URINE NEGATIVE (NEGATIVE); COLOR,URINE YELLOW; GLUCOSE, URINE NEGATIVE (NEGATIVE); KETONES,URINE NEGATIVE (NEGATIVE); LEUKOCYTE ESTERASE,URINE NEGATIVE (NEGATIVE); NITRITE,URINE NEGATIVE (NEGATIVE); PROTEIN,URINE NEGATIVE (NEGATIVE); URINE SPECIFIC GRAVITY 1.015; UROBILINOGEN,URINE NEGATIVE mg/dL (<2.0)
--- NOTE | 2018-11-22 19:48 | RADIOLOGY REPORT (SQ) ---
EXAM DESCRIPTION: CT LTD RENAL STONE PROTOCOL ON COMPLETED DATE/TIME: 11/22/2018 7:34 pm REASON FOR STUDY: R flank pain COMPARISON: None. TECHNIQUE: CT scan of the abdomen and pelvis performed without intravenous or oral contrast. Images reviewed with lung, soft tissue, and bone windows. Reconstructed coronal and sagittal MPR images revi ewed. All images stored on PACS. All CT scanners at this facility use dose modulation, iterative reconstruction, and/or weight based d osing when appropriate to reduce radiation dose to as low as reasonably achievable (ALARA). [facility]: Dose Right [facility]: CareDose [facility]: Dose Right [facility]: Teradose 4D [facility]: Smart Ozmosis RADIATION DOSE: CT Rad equipment meets quality standard of care and radiation dose reduction techniq ues were employed. CTDIvol: 4.8 mGy. DLP: 236 mGy-cm.mGy. LIMITATIONS: None. FINDINGS: LOWER CHEST: No significant findings. No nodules or infiltrates. NON-CONTRASTED LIVER, SPLEEN, ADRENALS: Evaluation limited by lack of IV contrast. No identified sign ificant masses. PANCREAS: No masses. No peripancreatic inflammatory changes. GALLBLADDER: No calcified stones. No inflammatory changes to suggest cholecystitis. RIGHT KIDNEY AND URETER: No cysts identified. No solid masses. No calcified stones. No hydronephrosis or hydroureter. LEFT KIDNEY AND URETER: No cysts identified. No solid masses. No calcified stones. No hydronephrosis or hydroureter. AORTA AND RETROPERITONEUM: No aneurysm. No retroperitoneal masses or adenopathy. BOWEL AND PERITONEAL CAVITY: No obvious masses or inflammatory changes. No free fluid. APPENDIX: Normal. PELVIS, BLADDER, AND ABDOMINAL WALL:No abnormal masses. No free fluid. Unremarkable bladder. BONES: No acute findings. OTHER: No other significant finding. IMPRESSION: NO ACUTE FINDINGS. TECHNICAL DOCUMENTATION: JOB ID: [id number] [place]-72 Quality ID # [id number]: Final reports with documentation of one or more dose reduction techniques (e.g., Au tomated exposure control, adjustment of the mA and/or kV according to patient size, use of iterative reconstruction technique) 2010 [employer]- All Rights Reserved Reading location - IP/workstation name: [email or web address]
[2018-11-22 19:55] LABS: ALANINE AMINOTRANSFERASE 33 U/L (9-52); ALBUMIN 4.6 g/dL (3.5-5.0); ALKALINE PHOSPHATASE 60 U/L (38-126); ANION GAP 5 (5-19); ASPARTATE AMINO TRANSFERASE 16 U/L (14-36); BILIRUBIN,TOTAL 0.2 mg/dL (0.2-1.3); BLOOD UREA NITROGEN 14 mg/dL (7-20); CALCIUM 9.6 mg/dL (8.4-10.2); CARBON DIOXIDE 29 mmol/L (22-30); CHLORIDE 107 mmol/L (98-107); GLUCOSE 82 mg/dL (75-110); POTASSIUM 4.3 mmol/L (3.6-5.0); SODIUM 141.1 mmol/L (137-145)
--- NOTE | 2018-11-22 20:44 | ER Document Report ---
ED General - General Chief Complaint: Abdominal Pain Stated Complaint: ABDOMINAL PAIN, BACK PAIN Time Seen by Provider: 11/22/18 19:11 Mode of Arrival: Ambulatory Notes: Well-appearing 37-year-old female presents to the emergency department for right lower quadrant abdominal pain. She says the pain started last night and it started out as back pain. She went to [facility] today was walking around and then had severe pain that caused her to double over and stop in her tracks. She has history of ovarian cyst feels this is different type of pain. She denies fevers, chills, shortness of breath, chest pain did complain of nausea, denies vomiting, diarrhea, denies urinary symptoms, denies abnormal vaginal discharge. TRAVEL OUTSIDE OF THE [place] IN LAST 30 DAYS: No - Related Data Allergies/Adverse Reactions: No Known Allergies Allergy (Verified 01/01/18 10:53) Past Medical History - General Information source: Patient - Social History Smoking Status: Current Every Day Smoker Frequency of alcohol use: None Family History: Arthritis, CAD, CVA, Hyperlipidemia, Hypertension. denies: DM, Malignancy, Thyroid Disfunction Patient has suicidal ideation: No Patient has homicidal ideation: No Neurological Medical History: Reports: Hx Migraine Renal/ Medical History: Reports: Hx Ectopic - x2. Denies: Hx Peritoneal Dialysis Musculoskeletal Medical History: Reports Hx Arthritis, Reports Hx Musculoskeletal Trauma Skin Medical History: Reports Hx Cellulitis, Reports Hx Psoriasis Psychiatric Medical History: Reports: Hx Obsessive Compulsive Disorder Traumatic Medical History: Reports: Hx Fractures - clavicle Past Surgical History: Reports: Hx Section - x4, Hx Genitourinary Surgery - bladder placenta from bladder, Hx Gynecologic Surgery - ectopic, Hx Hysterectomy, Hx Oral Surgery - Immunizations Immunizations up to date: No Hx Diphtheria, Pertussis, Tetanus Vaccination: No Review of Systems - Review of Systems Constitutional: See HPI EENT: No symptoms reported Cardiovascular: See HPI Respiratory: See HPI Gastrointestinal: See HPI Genitourinary: See HPI Female Genitourinary: See HPI Musculoskeletal: No symptoms reported Skin: No symptoms reported Hematologic/Lymphatic: No symptoms reported Neurological/Psychological: No symptoms reported Physical Exam - Notes Notes: PHYSICAL EXAMINATION: Reviewed vital signs and charting by RN GENERAL: Well-appearing, well-nourished and in no acute distress. HEAD: Atraumatic, normocephalic. EYES: Pupils equal round, extraocular movements intact, sclera anicteric, conjunctiva are normal. ENT: nares patent Moist mucous membranes. NECK: Normal range of motion LUNGS: Breath sounds clear to auscultation bilaterally and equal. No wheezes rales or rhonchi. HEART: Regular rate and rhythm without murmurs ABDOMEN: Soft, nontender, normoactive bowel sounds. No guarding, no rebound. Small superficial mass approximately 2 cm in size felt left lower quadrant EXTREMITIES: Normal range of motion, no pitting or edema. No cyanosis. NEUROLOGICAL: Face symmetric. PSYCH: Normal mood, normal affect. SKIN: Warm, Dry, normal turgor, no rashes or lesions noted. Course - Re-evaluation Re-evalutation: 11/22/18 20:44 Very well-appearing 37-year-old female presents for left lower quadrant abdominal pain. She was seen here a year ago and diagnosed with ovarian cysts. She states the pain is different this time. Lab work was all normal, urinalysis negative for UTI, CT abdomen without contrast unremarkable. After palpating her left lower quadrant I was able to feel a small superficial mass that could be consistent with a ovarian cyst as an ultrasound at her last visit stated that she was having superficial cysts. I reassured patient that there is no emergent condition and she is stable for discharge. - Laboratory Result Diagrams: 11/22/18 19:26 11/22/18 19:26 Discharge - Discharge Clinical Impression: Lower abdominal pain Condition: Good Disposition: HOME, SELF-CARE Instructions: Abdominal Pain ([facility]) Additional Instructions: You are seen in the emergency department this afternoon for lower abdominal pain. Your workup was overall negative which is very reassuring. Your CT showed no concerning emergency conditions. Your urine showed no evidence of urinary tract infection. It could very well be that this was another ovarian cyst as I was able to feel something in the area where you are having pain. Come back to the emergency department if you develop high fever, pass out, or have any other concerning symptoms. Referrals: ROLA SOTOMAYOR, [NO LOCAL MD] - Follow up as needed
== END 2018-11-22 20:45 | disposition home or self-care (01) ==
LOC: ER 18:49
DX: R10.31 Right lower quadrant pain (principal); R19.04 Left lower quadrant abdominal swelling, mass and lump; F17.200 Nicotine dependence, unspecified, uncomplicated; Z87.42 Personal history of other diseases of the female genital tract; Z87.59 Personal history of other complications of pregnancy, childbirth and the puerperium; Z90.710 Acquired absence of both cervix and uterus
CPT/HCPCS: 36415; 76380; 80053; 81001; 85025; 99284

== ENCOUNTER 2018-12-14 21:36 | Emergency (ER) | payer MEDICAID ==
[2018-12-15 00:52] LABS: APPEARANCE,URINE CLOUDY; BILIRUBIN,URINE NEGATIVE (NEGATIVE); COLOR,URINE YELLOW; GLUCOSE, URINE NEGATIVE (NEGATIVE); KETONES,URINE NEGATIVE (NEGATIVE); LEUKOCYTE ESTERASE,URINE LARGE (NEGATIVE); NITRITE,URINE POSITIVE (NEGATIVE); PROTEIN,URINE 100 mg/dL (NEGATIVE); URINE SPECIFIC GRAVITY 1.025
[2018-12-15] MEDS ORDERED: SULFAMETHOXAZOLE/TRIMETHOPRIM 800-160 MG TABLET PO ONE (01:22)
[2018-12-15 01:32] VITALS: BP 112/69
[2018-12-15] MEDS ORDERED: PHENAZOPYRIDINE HCL 200 MG TABLET PO ONE (01:48)
--- NOTE | 2018-12-15 02:03 | ER Document Report ---
ED General - General Chief Complaint: Abdominal Pain Stated Complaint: BACK PAIN/VAGINA PAIN Time Seen by Provider: 12/15/18 00:21 Mode of Arrival: Ambulatory TRAVEL OUTSIDE OF THE [place] IN LAST 30 DAYS: No - HPI Notes: Presents emerged from in for evaluation. She states she has had urinary urgency and dysuria. She had already seen her primary care physician about it and has b een referred on to urology. She states that over the last several days she has had worsening urgency. She has pain in her lower back. She has a pressure sensation before and after urination denies any ivan hematuria. No fevers, she has had some very mild nausea. - Related Data Allergies/Adverse Reactions: No Known Allergies Allergy (Verified 01/01/18 10:53) Past Medical History - General Information source: Patient - Social History Smoking Status: Current Every Day Smoker Chew tobacco use (# tins/day): No Frequency of alcohol use: None Drug Abuse: None Family History: Arthritis, CAD, CVA, Hyperlipidemia, Hypertension. denies: DM, Malignancy, Thyroid Disfunction Patient has suicidal ideation: No Patient has homicidal ideation: No Neurological Medical History: Reports: Hx Migraine Renal/ Medical History: Reports: Hx Ectopic - x2. Denies: Hx Peritoneal Dialysis Musculoskeletal Medical History: Reports Hx Arthritis, Reports Hx Musculoskeletal Trauma Skin Medical History: Reports Hx Cellulitis, Reports Hx Psoriasis Psychiatric Medical History: Reports: Hx Obsessive Compulsive Disorder Traumatic Medical History: Reports: Hx Fractures - clavicle Past Surgical History: Reports: Hx Section - x4, Hx Genitourinary Surgery - bladder placenta from bladder, Hx Gynecologic Surgery - ectopic, Hx Hysterectomy, Hx Oral Surgery - Immunizations Immunizations up to date: No Hx Diphtheria, Pertussis, Tetanus Vaccination: No Review of Systems - Review of Systems Constitutional: No symptoms reported EENT: No symptoms reported Cardiovascular: No symptoms reported Respiratory: No symptoms reported Gastrointestinal: Nausea Genitourinary: See HPI, Dysuria Musculoskeletal: No symptoms reported Skin: No symptoms reported Neurological/Psychological: No symptoms reported Physical Exam - Vital signs Vitals: Temp Pulse Resp BP Pulse Ox 97.6 F 70 16 104/57 L 100 12/14/18 22:16 12/14/18 22:16 12/14/18 22:16 12/14/18 22:16 12/14/18 22:16 Interpretation: Normal - Notes Notes: Vital signs reviewed, please refer to chart. Patient is normocephalic, atraumatic. Pupils equal round, reactive to light. Neck is supple without meningismus. Heart is regular rate and rhythm. Lungs are clear to auscultation bilaterally. Abdomen is soft, nontender, normoactive bowel sounds throughout. No costovertebral angle tenderness. Extremities without cyanosis, clubbing, edema. Peripheral pulses are equal. Skin is warm and dry. Patient is awake, alert, neurological exam is nonfocal. Course - Re-evaluation Re-evalutation: 12/15/18 02:00 Patient presents emergency department for evaluation. Her symptoms are most consistent with a urinary tract infection. Her urine is found to be nitrate positive. I did review her prior urine culture from 2016. He did reveal E. coli. She was medicated here with Bactrim. We will send her home with a prescription for the same. She also asked for Pyridium. She was told that she should not take this for at least 24 hours prior to any urine recheck. She voiced understanding to this. She will follow-up with primary care and urology. She is to return to the emergency department for worsening or new concerning symptoms. - Vital Signs Vital signs: Temp Pulse Resp BP Pulse Ox 97.9 F 70 16 112/69 99 12/15/18 01:32 12/15/18 01:32 12/15/18 01:32 12/15/18 01:32 12/15/18 01:32 - Laboratory Laboratory results interpreted by me: 12/14/18 23:55 Urine Protein 100 H Urine Nitrite POSITIVE H Urine Urobilinogen 2.0 H Ur Leukocyte Esterase LARGE H Urine Ascorbic Acid 40 H Discharge - Discharge Clinical Impression: Urinary tract infection Qualifiers: Encounter type: initial encounter Condition: Good Disposition: HOME, SELF-CARE Instructions: Urinary Tract Infection ([facility]) Additional Instructions: Take antibiotic as prescribed until gone, starting tomorrow morning. Pyridium as needed for pain. Be sure not to take this for 24 hours prior to having her urine rechecked. Return to emergency department with worsening or new concerning symptoms.
== END 2018-12-15 02:06 | disposition home or self-care (01) ==
LOC: ER 21:36
DX: N39.0 Urinary tract infection, site not specified (principal); R10.9 Unspecified abdominal pain; M54.9 Dorsalgia, unspecified; R10.2 Pelvic and perineal pain; R39.15 Urgency of urination; R30.0 Dysuria; M54.5 Low back pain; F17.200 Nicotine dependence, unspecified, uncomplicated
CPT/HCPCS: 99284; 87086; 87088; 81001; 87186; J3490 ×2

== ENCOUNTER → 2018-12-29 | Outpatient (CLI) | payer MEDICAID ==
--- NOTE | 2018-12-29 14:19 | WOMENS IMAGING REPORT ---
EXAM DESCRIPTION: 3D SCREENING MAMMO BILAT COMPLETED DATE/TIME: 12/29/2018 10:39 am REASON FOR STUDY: ROUTINE 3D BILATERAL SCREENING,Z12.31 Z12.31 ENCNTR SCREEN MAMMOGRAM FOR MALIGNAN T NEOPLASM OF JENNY COMPARISON: Baseline study TECHNIQUE: Standard craniocaudal and mediolateral oblique views of each breast recorded using digita l acquisition and breast tomosynthesis. LIMITATIONS: None. FINDINGS: No masses, calcifications or architectural distortion. No areas of suspicion. Read with the assistance of CAD. .[facility] - R2 Cenova Version 1.3 .[facility] - R2 Cenova Version 2.[address] - R2 Cenova Version 2.4 .[facility] - R2 Cenova Version 2.4 .[facility] - R2 Scientific Informatics Leader Version 9.2 IMPRESSION: NORMAL MAMMOGRAM. BIRADS 1. BREAST DENSITY: b. There are scattered areas of fibroglandular density. BIRAD: 1 NEGATIVE RECOMMENDATION: ROUTINE SCREENING COMMENT: The patient has been notified of the results by letter per SA requirements. Additional no tification policies are in place for contacting patient with suspicious or incomplete findings. Quality ID #[id number]: The [employer] recommends an annual screening mammogram for women aged 40 years or over. This facility utilizes a reminder system to ensure that all patients receive reminder letters, and/or direct phone calls for appointments. This includes reminders for routine scr eening mammograms, diagnostic mammograms, or other Breast Imaging Interventions when appropriate. Th is patient will be placed in the appropriate reminder system. The [employer] (ACR) has developed recommendations for screening MRI of the breast s in certain patient populations, to be used in conjunction with mammography. Breast MRI surveillanc e may be appropriate for women with more than 20% lifetime risk of developing breast cancer as deter mined by genetic testing, significant family history of the disease, or history of mantle radiation f or Hodgkins Disease. ACR Practice Guidelines 2008. DBT Technology DBT is a type of tomographic mammography. With conventional mammography, overlapping breast tissue ma y make lesions difficult to detect, even with good compression. DBT uses an x-ray tube that rotates a round the breast, taking images at different angles. These images are then combined to create thin sl ices of the breast that the radiologist can view as a 3D reconstruction. The [employer] unit can perform full-field digital mammograms (2D imaging); or DBT (3D imaging); or both, in a combination mode that quickly performs both the mammogram and the tomosynthesis scan while the breast is still compressed. PQRS 6045F: Fluoroscopic imaging is not utilized for breast tomosynthesis. TECHNICAL DOCUMENTATION: FINDING NUMBER: (1) ASSESSMENT: (1) JOB ID: [id number] [employer]- All Rights Reserved Reading location - IP/workstation name: EMPLOYEE DEVELOPMENT DIRECTOR-[facility]
== END ==
LOC: WI 10:10
PROVIDERS: ATTEND Obstetrics & Gynecology Gynecology
DX: Z12.31 Encounter for screening mammogram for malignant neoplasm of breast (principal)
CPT/HCPCS: 77063; 77067

== ENCOUNTER 2019-04-26 09:20 | Emergency (ER) | payer SELFPAY ==
[2019-04-26 09:50] VITALS: BP 115/69
[2019-04-26 09:51] LABS: APPEARANCE,URINE SLIGHTLY-CLOUDY; BILIRUBIN,URINE NEGATIVE (NEGATIVE); COLOR,URINE YELLOW; GLUCOSE, URINE NEGATIVE (NEGATIVE); KETONES,URINE TRACE mg/dL (NEGATIVE); LEUKOCYTE ESTERASE,URINE LARGE (NEGATIVE); NITRITE,URINE NEGATIVE (NEGATIVE); PROTEIN,URINE 100 mg/dL (NEGATIVE); URINE SPECIFIC GRAVITY 1.017; UROBILINOGEN,URINE NEGATIVE mg/dL (<2.0)
--- NOTE | 2019-04-26 10:25 | ER Document Report ---
HPI - HPI Patient complains to provider of: uti Time Seen by Provider: 04/26/19 10:17 Onset: Other - 5 days Onset/Duration: Persistent Quality of pain: Burning Pain Level: 4 Context: Patient presents complaining of UTI symptoms for the past 5 days. Patient also reports sinus congestion for the past 2 to 3 days. Patient reports frontal sinus pressure and cough for 3 days. Patient denies any fever nausea or vomiting. Patient denies any back pain. Associated Symptoms: Nonproductive cough, Sinus pain/drainage. denies: Chest pain, Fever, Sore throat Exacerbated by: Denies Relieved by: Denies Similar symptoms previously: Yes Recently seen / treated by doctor: No - ROS ROS below otherwise negative: Yes Systems Reviewed and Negative: Yes All other systems reviewed and negative - CONSTITUTIONAL Constitutional: DENIES: Fever, Chills - EENT EENT: REPORTS: Nasal Drainage-Purulent, Congestion. DENIES: Sore Throat, Ear Pain, Eye problems - NEURO Neurology: REPORTS: Headache - sinus. DENIES: Weakness, Vision blurred, Dizzinesss / Vertigo - CARDIOVASCULAR Cardiovascular: DENIES: Chest pain - RESPIRATORY Respiratory: REPORTS: Coughing - 2-3 days. 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 denies: DM, Malignancy, Thyroid Disfunction Patient has suicidal ideation: No Patient has homicidal ideation: No Neurological Medical History: Reports: Hx Migraine Renal/ Medical History: Reports: Hx Ectopic - x2. Denies: Hx Peritoneal Dialysis Musculoskeletal Medical History: Reports Hx Arthritis, Reports Hx Musculoskeletal Trauma Skin Medical History: Reports Hx Cellulitis, Reports Hx Psoriasis Psychiatric Medical History: Reports: Hx Obsessive Compulsive Disorder Traumatic Medical History: Reports: Hx Fractures - clavicle Past Surgical History: Reports: Hx Section - x4, Hx Genitourinary Surgery - bladder placenta from bladder, Hx Gynecologic Surgery - ectopic, Hx Hysterectomy, Hx Oral Surgery - Immunizations Immunizations up to date: No Hx Diphtheria, Pertussis, Tetanus Vaccination: No Vertical Provider Document - CONSTITUTIONAL Agree With Documented VS: Yes Exam Limitations: No Limitations General Appearance: WD/WN, No Apparent Distress - INFECTION CONTROL TRAVEL OUTSIDE OF THE [place] IN LAST 30 DAYS: No - HEENT HEENT: Atraumatic, Normocephalic. negative: Pharyngeal Exudate, Pharyngeal Tenderness, Pharyngeal Erythema, Tympanic Membrane Red, Tympanic Membrane Bulging Notes: clear rhinorrhea, frontal sinus tenderness - NECK Neck: Normal Inspection, Supple. negative: Lymphadenopathy-Left, Lymphadenopathy-Right - RESPIRATORY Respiratory: No Respiratory Distress, Chest Non-Tender, Wheezing - faint scattered - CARDIOVASCULAR Cardiovascular: Regular Rate, Regular Rhythm, No Murmur - BACK Back: Normal Inspection. negative: CVA Tenderness-Right, CVA Tenderness-Left - MUSCULOSKELETAL/EXTREMETIES Musculoskeletal/Extremeties: MAEW, FROM - NEURO Level of Consciousness: Awake, Alert, Appropriate Motor/Sensory: No Motor Deficit - DERM Integumentary: Warm, Dry, No Rash Course - Re-evaluation Re-evalutation: 04/26/19 10:19 Offered patient breathing treatment, patient states she has machine at home. Patient with findings worrisome for UTI, no concern for sepsis at this time. Antibiotic will be prescribed to treat her UTI. Patient will be given prescription for symptomatic treatment of her upper respiratory infection. Good return precautions discussed with patient. 04/26/19 10:27 - Vital Signs Vital signs: Temp Pulse Resp BP Pulse Ox 97.9 F 85 16 115/69 97 04/26/19 09:48 04/26/19 09:48 04/26/19 09:48 04/26/19 09:48 04/26/19 09:48 - Laboratory Laboratory results interpreted by me: 04/26/19 09:30 Urine Protein 100 H Urine Ketones TRACE H Ur Leukocyte Esterase LARGE H Urine Ascorbic Acid 40 H 04/26/19 16:45 Labs- Entire Visit 04/26/19 09:30 Urine Color YELLOW Urine Appearance SLIGHTLY-CLOUDY Urine pH 6.0 Ur Specific [place] 1.017 Urine Protein 100 H Urine Glucose (UA) NEGATIVE Urine Ketones TRACE H Urine Blood NEGATIVE Urine Nitrite NEGATIVE Urine Bilirubin NEGATIVE Urine Urobilinogen NEGATIVE Ur Leukocyte Esterase LARGE H Urine WBC (Auto) >182 Urine RBC (Auto) 17 Urine Bacteria (Auto) TRACE Squamous Epi Cells Auto 1 Urine Mucus (Auto) RARE Urine Ascorbic Acid 40 H Discharge - Discharge Clinical Impression: UTI (urinary tract infection) Qualifiers: Urinary tract infection type: site unspecified Hematuria presence: without hematuria Qualified Code(s): N39.0 - Urinary tract infection, site not specified Upper respiratory infection Qualifiers: URI type: unspecified URI Qualified Code(s): J06.9 - Acute upper respiratory infection, unspecified Condition: Stable Disposition: HOME, SELF-CARE Instructions: Cephalexin ([facility]), Upper Respiratory Illness ([facility]), Urinary Anesthetic Agent ([facility]), Urinary Tract Infection ([facility]) Additional Instructions: Return immediately for any new or worsening symptoms Followup with your primary care provider, call tomorrow to make a followup appointment Stop smoking Prescriptions: Albuterol Sulfate [Proair Hfa Inhalation Aerosol 8.5 gm Mdi] 2 puff IH Q4 PRN #1 mdi PRN Reason: RX: Cephalexin Monohydrate [Keflex 500 mg Capsule] 500 mg PO Q6H 5 Days capsule Guaifenesin/Pseudoephedrne HCl [Mucinex D ER 1,200-120 mg Tab] 1 each PO BID PRN #12 tab.er.12h PRN Reason: RX: Prednisone [Deltasone 10 mg Tablet] 10 mg PO ASDIR PRN #21 tablet PRN Reason: Referrals: REBEKA GRIMALDO MD [Primary Care Provider] - Follow up as needed
== END 2019-04-26 10:18 | disposition home or self-care (01) ==
LOC: ER 09:20
DX: N39.0 Urinary tract infection, site not specified (principal); J06.9 Acute upper respiratory infection, unspecified; R09.81 Nasal congestion; R05 Cough; J34.89 Other specified disorders of nose and nasal sinuses; R51 Headache; F17.200 Nicotine dependence, unspecified, uncomplicated
CPT/HCPCS: 81001; 99283